=== PATIENT | female | born 1950 | race Caucasian/White ===

== ENCOUNTER 2017-05-21 22:19 | Emergency (ER) | payer OTHER ==
[~2017-05-21] VITALS: Ht 165.1 cm; Wt 84.1 kg
[~2017-05-21 22:19] MED LIST: ADDERALL XR 1010 MG PO; FLOMAX0.4 MG PO; PERCOCET 5/31 TABLET PO; ZOFRAN4 MG PO
[2017-05-22] MEDS ORDERED: NORCO 5/3251 TABLET PO (00:34)
[2017-05-22 00:59] VITALS: BP 108/82
== END 2017-05-22 00:59 | disposition home or self-care (01) ==
LOC: EME 22:19
PROC: 2W3QX1Z Immobilization of Right Lower Leg using Splint (ICD-10-PCS; principal; 2017-05-22)
DX: S92.911A Unspecified fracture of right toe(s), initial encounter for closed fracture (principal); V19.9XXA Pedal cyclist (driver) (passenger) injured in unspecified traffic accident, initial encounter; Y93.55 Activity, bike riding
CPT/HCPCS: 73630; 99281; 99284